=== PATIENT | female | born 1995 | race African-American/Black ===

== ENCOUNTER 2019-04-11 05:38 | Emergency (ER) | payer OTHER ==
[2019-04-11] MEDS: morphine 4 MG/ML VIAL IV (06:02)
[2019-04-11] MEDS: LIDOCAINE 1% (MPF) 5 ML VIAL INJ (07:02)
[2019-04-11] MEDS: DIPHTH/TET/ACEL PERTUSS (ADULT) 0.5 ML VIAL IM* (08:01)
== END 2019-04-11 10:03 | disposition home or self-care (01) ==
LOC: E/R 05:38
DX: S61.411A Laceration without foreign body of right hand, initial encounter (principal); W23.0XXA Caught, crushed, jammed, or pinched between moving objects, initial encounter; Y92.89 Other specified places as the place of occurrence of the external cause; Z23 Encounter for immunization
CPT/HCPCS: 12002; 73130-RT; 90471; 90715; 96374; 99284-25